=== PATIENT | female | born 1970 | race Caucasian/White ===

== ENCOUNTER 2021-09-09 10:00 | Outpatient (CLI) | payer OTHER ==
[~2021-09-09] VITALS: Ht 165.1 cm; Wt 64.9 kg
== END 2021-09-09 11:00 | disposition home or self-care (01) ==
LOC: SLB 10:00 → EDSTATUS 09-10 07:45
PROVIDERS: ATTEND Internal Medicine Gastroenterology
DX: Z20.822 Contact with and (suspected) exposure to COVID-19 (principal)
CPT/HCPCS: 36415; U0003